=== PATIENT | female | born 1965 ===

== ENCOUNTER 2016-11-01 16:26 | Emergency (ER) | payer MEDICAID ==
[2016-11-01 16:26] VITALS: BMI 22.0
[2016-11-01 17:23] VITALS: BP 116/72; PULSE 74; RESP 19; TEMP 98.9; O2SAT 99
[2016-11-01] MEDS ORDERED: Oxycodone/Acetaminophen 5/325 mg Tab PO STA (17:30)
--- NOTE | 2016-11-01 17:39 | ED PDOC ---
HPI: Back Time Seen by Provider: 11/01/16 17:12 Chief Complaint (Nursing): Back Pain Chief Complaint (Provider): Back Pain History Per: Patient History/Exam Limitations: no limitations Onset/Duration Of Symptoms: Days (x2) Additional Complaint(s): Kristine Fox, 51 year old female presents to the ED on 11/01/16 for lower back pain occurring for 2 days prior to arrival. The patient states the pain to radiate down to her legs. She has taken Tramadol last night for the pain. She denies dysuria, urinary incontinence, or urinary frequency. The patient also states experiencing pain in her abdomen. Past Medical History Reviewed: Historical Data, Nursing Documentation, Vital Signs Vital Signs: Last Vital Signs Temp 98.9 F 11/01/16 17:12 Pulse 74 11/01/16 17:12 Resp 19 11/01/16 17:12 BP 116/72 11/01/16 17:12 Pulse Ox 99 11/01/16 17:12 - Medical History PMH: Anxiety, Asthma, Depression, Gastritis, HTN, Chronic Kidney Disease, TIA - Family History Family History: States: Unknown Family Hx - Immunization History Hx Tetanus Toxoid Vaccination: No Hx Influenza Vaccination: No Hx Pneumococcal Vaccination: No - Home Medications Home Medications: Ambulatory Orders Medication Instructions Recorded Omeprazole 20 mg PO DAILY 02/03/14 Prozac 10 mg PO DAILY 02/03/14 ARIPiprazole [Abilify] 10 mg PO DAILY 08/14/15 Clonazepam 0.5 mg PO DAILY 08/14/15 Diclofenac Sodium [Voltaren] 100 gm TP DAILY 08/14/15 Fluticasone/Salmeterol 250/50 1 puff IH TID 08/14/15 [Advair Diskus 250/50] Gabapentin [Neurontin] 300 mg PO BID 08/14/15 Methocarbamol [Robaxin] 750 mg PO DAILY 08/14/15 Modafinil 100 mg PO DAILY 08/14/15 Multivit,Iron,Min 5/Folic Acid 1 tab PO DAILY 08/14/15 [Strovite Forte Caplet] Ofloxacin Otic 0.3% [Floxin 0.3% 1 drop TID 08/14/15 Otic Soln] Ramipril [Altace] 10 mg PO DAILY 08/14/15 Modafinil [Provigil] 100 mg PO DAILY #0 tab 01/04/16 Naproxen [Naprosyn] 500 mg PO BID PRN #30 tablet 01/04/16 - Allergies Allergies/Adverse Reactions: Allergies Allergy/AdvReac Type Severity Reaction Status Date / Time No Known Allergies Allergy Verified 08/14/15 09:28 Review of Systems ROS Statement: Except As Marked, All Systems Reviewed And Found Negative Gastrointestinal: Positive for: Abdominal Pain (lower ) Genitourinary Female: Negative for: Dysuria, Frequency, Incontinence Musculoskeletal: Positive for: Back Pain (lower back pain), Leg Pain (pain radiating down bilat legs ) Physical Exam - Reviewed Nursing Documentation Reviewed: Yes Vital Signs Reviewed: Yes - Physical Exam Appears: Positive for: Non-toxic, No Acute Distress Head Exam: Positive for: ATRAUMATIC, NORMOCEPHALIC Back: Positive for: Other (lumbosacral paraspinal tenderness; striaght leg positive 30 degrees bilaterally ) Neurologic/Psych: Positive for: Alert, Oriented (x3) - ECG O2 Sat by Pulse Oximetry: 99 (RA) Pulse Ox Interpretation: Normal Medical Decision Making Medical Decision Making: Initial Impression: Lower back pain Initial Plan: * ED Urine (POC) Stat * Urinalysis Stat * Flexeril 10 mg PO Stat * Percocet 5/325 mg Tab 1 tab PO Stat * Toradol 30 mg IM Stat * Reevaluation CT Scan LUMBAR SPINE W/O CONTRAST Exam Date: 11/01/16 This imaging exam was performed at [facility] EXAM: CT Lumbar Spine Without Intravenous Contrast CLINICAL HISTORY: 51 years old, female; Signs and symptoms; Other: Lower back pain , radiating down legs; Additional info: Back pain severe TECHNIQUE: Axial computed tomography images of the lumbar spine without intravenous contrast. This CT exam was performed using one or more of the following dose reduction techniques: automated exposure control, adjustment of the mA and/or kV according to patient size, and/or use of iterative reconstruction technique. Coronal and sagittal reformatted images were created and reviewed. EXAM DATE/TIME: 11/01/2016 7:28 PM COMPARISON: No relevant prior studies available. FINDINGS: VERTEBRAE: Very mild right convex scoliosis. No acute fractures are seen. No evidence of acute vertebral compression fractures. No evidence of significant vertebral subluxation. DISCS/SPINAL CANAL/NEURAL FORAMINA: Mild, multilevel degenerative disc disease. There are small anterior osteophytes at multiple levels. At L5-S1, there is a posterior disc bulge, eccentric to the right, causing mild right spinal canal and neural foraminal stenosis. At L4-5, there is a posterior disc bulge, causing mild bilateral neural foraminal stenosis. Note, however, that the spinal soft tissues, such as the intervertebral disks and contents of the spinal canal, are suboptimally evaluated by CT compared with MRI. Intervertebral disc heights are preserved. No evidence of bony spinal canal stenosis. SOFT TISSUES: No acute abnormality of the visualized soft tissues is seen. KIDNEYS AND URETERS: Tiny, nonobstructing right renal stone incidentally noted. No evidence of hydroureteronephrosis. IMPRESSION: - No evidence of fractures or other acute bony abnormality. - Mild, multilevel degenerative disc disease. Please see above for a full description. - See above for remaining findings. Scribe Attestation: Documented by Nga Rivera, acting as a scribe for Emilia Parker PA-C. Provider Scribe Attestation: All medical record entries made by the Scribe were at my direction and personally dictated by me. I have reviewed the chart and agree that the record accurately reflects my personal performance of the history, physical exam, medical decision making, and the department course for this patient. I have also personally directed, reviewed, and agree with the discharge instructions and disposition. Disposition - Clinical Impression Clinical Impression: Back pain - Patient ED Disposition Is Patient to be Admitted: No - Disposition Disposition: Routine/Home Disposition Time: 21:32 Condition: STABLE - POA Present On Arrival: None
[2016-11-01] MEDS ORDERED: Oxycodone/Acetaminophen 5/325 mg Tab ONE (17:51)
[2016-11-01 19:47] LABS: SQUAMOUS EPITHIAL 1 /hpf (0-5); URINE BILIRUBIN NEGATIVE (NEGATIVE); URINE BLOOD NEGATIVE (NEGATIVE); URINE CLARITY CLEAR (Clear); URINE COLOR YELLOW (YELLOW); URINE GLUCOSE (UA) NEG (Normal); URINE LEUKOCYTE ESTERASE NEG Leu/uL (Negative); URINE NITRATE NEGATIVE (NEGATIVE); URINE PROTEIN NEGATIVE (NEGATIVE); URINE UROBILINOGEN 0.2-1.0 mg/dL (0.2-1.0)
--- NOTE | 2016-11-01 21:03 | CT ---
EXAM: CT Lumbar Spine Without Intravenous Contrast CLINICAL HISTORY: 51 years old, female; Signs and symptoms; Other: Lower back pain , radiating down legs; Additional info: Back pain severe TECHNIQUE: Axial computed tomography images of the lumbar spine without intravenous contrast. This CT exam was performed using one or more of the following dose reduction techniques: automated exposure control, adjustment of the mA and/or kV according to patient size, and/or use of iterative reconstruction technique. Coronal and sagittal reformatted images were created and reviewed. EXAM DATE/TIME: 11/01/2016 7:28 PM COMPARISON: No relevant prior studies available. FINDINGS: VERTEBRAE: Very mild right convex scoliosis. No acute fractures are seen. No evidence of acute vertebral compression fractures. No evidence of significant vertebral subluxation. DISCS/SPINAL CANAL/NEURAL FORAMINA: Mild, multilevel degenerative disc disease. There are small anterior osteophytes at multiple levels. At L5-S1, there is a posterior disc bulge, eccentric to the right, causing mild right spinal canal and neural foraminal stenosis. At L4-5, there is a posterior disc bulge, causing mild bilateral neural foraminal stenosis. Note, however, that the spinal soft tissues, such as the intervertebral disks and contents of the spinal canal, are suboptimally evaluated by CT compared with MRI. Intervertebral disc heights are preserved. No evidence of bony spinal canal stenosis. SOFT TISSUES: No acute abnormality of the visualized soft tissues is seen. KIDNEYS AND URETERS: Tiny, nonobstructing right renal stone incidentally noted. No evidence of hydroureteronephrosis. IMPRESSION: - No evidence of fractures or other acute bony abnormality. - Mild, multilevel degenerative disc disease. Please see above for a full description. - See above for remaining findings.
== END 2016-11-01 21:38 | disposition home or self-care (01) ==
LOC: H.ER 16:26
DX: M54.9 Dorsalgia, unspecified (principal); I12.9 Hypertensive chronic kidney disease with stage 1 through stage 4 chronic kidney disease, or unspecified chronic kidney disease; M51.36 Other intervertebral disc degeneration, lumbar region; Z86.73 Personal history of transient ischemic attack (TIA), and cerebral infarction without residual deficits